=== PATIENT | female | born 1965 | race African-American/Black ===

== ENCOUNTER 2017-04-11 09:06 | Day surgery (SDC) | payer OTHER ==
[2017-04-10 14:32] VITALS: BMI 53.9
[2017-04-11] MEDS ORDERED: PROPOFOL 20 ML ONE ×2 (10:21)
[2017-04-11 11:12] VITALS: TEMP 98.3
[2017-04-11 12:09] VITALS: BP 116/70; PULSE 76
--- NOTE | 2017-04-12 16:57 | PATH ---
Surgical Pathology Report Patient Name: COLE VASQUEZ [facility]. Rec. #: [id number] /Age/Gender: 1965 (Age: 52) / F Account: [id number] Location: [facility]-ENDOSCOPY Taken: 04/11/2017 Received: 04/11/2017 Reported: 04/12/2017 Physicians: Bernard Jacobson M.D. Specimen(s) Received BX RECTAL POLYP Clinical History Preoperative diagnosis: Colon cancer screening Postoperative diagnosis: Rectal polyp Final Diagnosis RECTUM, POLYP, BIOPSY: POLYPOID COLONIC MUCOSA WITH PROMINENT LYMPHOID AGGREGATE AND FOCAL SUPERFICIAL HYPERPLASTIC FEATURES. Electronically Signed Leanna Renee M.D. Gross Description Received in formalin, labeled "biopsy rectal polyp" is a walsh, irregular portion of soft tissue measuring 0.3 cm. in greatest dimension. The specimen is submitted in toto in one cassette. 04/11/201704/11/2017
== END 2017-04-11 12:09 | disposition home or self-care (01) ==
LOC: JASU-ENDO 09:06
PROVIDERS: ATTEND Internal Medicine Gastroenterology
PROC: 0DBP8ZX Excision of Rectum, Via Natural or Artificial Opening Endoscopic, Diagnostic (ICD-10-PCS; principal; 2017-04-11 09:30)
DX: Z12.11 Encounter for screening for malignant neoplasm of colon (principal); K62.1 Rectal polyp
CPT/HCPCS: 84703; 88305-TC

== ENCOUNTER 2017-11-04 19:53 | Emergency (ER) | payer OTHER ==
[2017-11-04 19:58] VITALS: BP 149/74; PULSE 82; TEMP 98; BMI 53.7
--- NOTE | 2017-11-04 20:12 | PDOC ---
History of Present Illness - General Chief Complaint: Abscess Boil Stated Complaint: FOOT PAIN Time Seen by Provider: 11/04/17 19:59 History Source: Patient Exam Limitations: No Limitations - History of Present Illness Initial Comments: 11/04/17 20:16 c/o calus to the right foot Past History - Past Medical History Allergies/Adverse Reactions: Allergies Allergy/AdvReac Type Severity Reaction Status Date / Time aspirin AdvReac GI UPSET Verified 11/04/17 19:58 Home Medications: Ambulatory Orders Unobtainable 11/04/17 HTN: Yes Other medical history: obesity - Immunization History Immunization Up to Date: No - Suicide/Smoking/Psychosocial Hx Smoking Status: Yes Smoking History: Never smoked Have you smoked in the past 12 months: No Number of Cigarettes Smoked Daily: 0 If you are a former smoker, when did you quit?: 7 yrs Information on smoking cessation initiated: No Hx Alcohol Use: No Drug/Substance Use Hx: No Substance Use Type: None Hx Substance Use Treatment: No Review of Systems - Review of Systems Able to Perform ROS?: Yes Is the patient limited Ug[place]an proficient: No Integumentary: Yes: Symptoms Reported *Physical Exam - Vital Signs Last Vital Signs Temp Pulse Resp BP Pulse Ox 98.0 F 82 16 149/74 100 11/04/17 19:55 11/04/17 19:55 11/04/17 19:55 11/04/17 19:55 11/04/17 19:55 - Physical Exam General Appearance: Yes: Nourished, Appropriately Dressed HEENT: positive: EOMI, MAXINE Neck: positive: Supple Extremity: positive: Normal Capillary Refill, Normal Inspection, Normal Range of Motion Integumentary: positive: Other (right foot plantar surface with caluses ) Neurologic: positive: Fully Oriented, Alert, Normal Mood/Affect Medical Decision Making - Medical Decision Making 11/04/17 20:12 cc: right foot with calus fluid filled areas to the lateral and plantar surface. Pt has been followed by a tin worker who gave her creams that she has been applying with some relief. pt states more areas of swelling no redness no drainage no recovery *DC/Admit/Observation/Transfer Diagnosis at time of Disposition: Foot callus - Discharge Dispostion Disposition: HOME Condition at time of disposition: Fair - Referrals Referrals: Dave Schroeder MD [Staff Physician] - - Patient Instructions Additional Instructions: follow with the tin worker tabitha petty soaks once a day dry completely and apply the creams you have been using make sure the foot stays dry - Post Discharge Activity
== END 2017-11-04 20:17 | disposition home or self-care (01) ==
LOC: JERFT 19:53
DX: L84 Corns and callosities (principal); I10 Essential (primary) hypertension; E66.9 Obesity, unspecified; Z68.43 Body mass index [BMI] 50.0-59.9, adult
CPT/HCPCS: 99281-25

== ENCOUNTER 2018-06-06 18:14 | Emergency (ER) | payer OTHER ==
[2018-06-06 18:30] VITALS: BP 145/88; PULSE 90; TEMP 98.1; BMI 54.8
[2018-06-06] MEDS ORDERED: diphenhydrAMINE HCL 50 MG CAPSULE ONE (18:41)
[2018-06-06] MEDS ORDERED: KETOROLAC TROMETHAMINE 30 MG/1 ML VIAL IM ONE (20:56)
[2018-06-06] MEDS ORDERED: KETOROLAC TROMETHAMINE 30 MG/1 ML VIAL ONE (20:58)
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
== END 2018-06-06 22:39 | disposition home or self-care (01) ==
LOC: FER 18:14
PROC: 3E0233Z Introduction of Anti-inflammatory into Muscle, Percutaneous Approach (ICD-10-PCS; principal; 2018-06-06)
DX: R51 Headache (principal); M54.9 Dorsalgia, unspecified; V43.52XA Car driver injured in collision with other type car in traffic accident, initial encounter; Y93.89 Activity, other specified; Y92.410 Unspecified street and highway as the place of occurrence of the external cause; I10 Essential (primary) hypertension; Z88.6 Allergy status to analgesic agent
CPT/HCPCS: 70450-TC; 72125-TC; 72128-TC; 72131-TC; 99282-25